=== PATIENT | female | born 1985 | race Caucasian/White ===

== ENCOUNTER 2017-11-16 13:17 | Emergency (ER) | payer OTHER ==
[2017-11-16] MEDS: DIPHTH/TET/ACEL PERTUSS (ADULT) 0.5 ML VIAL IM* (15:30)
== END 2017-11-16 16:52 | disposition home or self-care (01) ==
LOC: FTE 13:17
DX: S61.102A Unspecified open wound of left thumb with damage to nail, initial encounter (principal); W23.0XXA Caught, crushed, jammed, or pinched between moving objects, initial encounter; Y92.9 Unspecified place or not applicable; Z23 Encounter for immunization
CPT/HCPCS: 73140; 90471; 90715; 99283-25

== ENCOUNTER 2018-05-17 12:25 | Emergency (ER) | payer SELFPAY, OTHER | END 2018-05-17 15:53 | disposition home or self-care (01) | LOC: FTE 12:25 | DX: J06.9 Acute upper respiratory infection, unspecified (principal) | CPT/HCPCS: 99284 ==